=== PATIENT | female | born 1940 | race American Indian/Alaskan Native ===

== ENCOUNTER 2016-05-29 11:07 | Outpatient (CLI) | payer MEDICARE ==
--- NOTE | 2016-05-29 12:26 | Mammography Report ---
BILATERAL MAMMOGRAM: FINDINGS: The breast tissue is heterogeneously dense, which could obscure detection of small masses (approximately 50%-75% glandular). No mass, distortion, suspicious calcification, or skin change is seen. No significant change identified when compared to her prior study in March 2015. There is a left pacemaker obscuring the axilla. CAD was utilized. IMPRESSION: Negative mammogram. There is no mammographic evidence of malignancy. RECOMMENDATION: Follow-up per ACS guidelines. BI-RADS CATEGORY: 1 = Negative ACR BI-RADS MAMMOGRAPHIC CODES: 0 = Needs additional imaging evaluation; 1 = Negative; 2 = Benign; 3 = Probably benign; 4 = Suspicious; 5 = Malignant; 6 = Known biopsy-proven malignancy COMMENT: 1. Dense breast tissue, i.e., adenosis, fibrocystic changes, etc., may obscure an underlying neoplasm. 2. Approximately 10% of cancers are not detected with mammography. 3. A negative mammography report should not delay biopsy if a clinically suspicious mass is present. COMMENT: Patient follow-up letters are generated in [place].
== END 2016-05-29 11:08 | disposition home or self-care (01) ==
LOC: MAMMO 11:07
PROVIDERS: ATTEND Internal Medicine
DX: Z12.31 Encounter for screening mammogram for malignant neoplasm of breast (principal)
CPT/HCPCS: 77067; G0202

== ENCOUNTER 2018-09-15 14:07 | Outpatient (CLI) | payer MEDICARE ==
--- NOTE | 2018-09-15 15:43 | Mammography Report ---
DIGITAL SCREENING MAMMOGRAM WITH CAD INDICATION: Routine screening mammography. TECHNIQUE: Digital bilateral 2D mammography was obtained in the craniocaudal and mediolateral obliq ue projections. This examination was interpreted with the benefit of Computer-Aided Detection analysi s. COMPARISON: 05/29/2016 FINDINGS: Breast Density: The breasts are heterogeneously dense, which may obscure small masses. There is no evidence of dominant mass, suspicious calcifications or architectural distortion in eith er breast. A pacemaker obscures a large portion of the upper left breast on the MLO view. IMPRESSION: BI-RADS Category 2: Benign. No mammographic evidence of malignancy. Recommend routine screening ma mmography in one year. A "normal" or negative report should not discourage follow up or biopsy of a clinically significant f inding. A written summary of these findings will be mailed to the patient. The patient will be entered into a mammography reporting system which will generate a reminder letter for the patient's next appointmen t at the appropriate interval. The [employer] recommends yearly mammograms starting at age 40 and continuing as l samantha as a woman is in good health. Breast MRI is recommended for women with an approximate 20-25% or greater lifetime risk of breast cancer, including women with a strong family history of breast or ova bib cancer or who have been treated for Hodgkin's disease. Signer Name: Jai Solano MD Signed: 09/15/2018 3:39 PM Workstation Name: [id number]
--- NOTE | 2018-09-15 15:47 | XRay Report ---
CERVICAL SPINE, 3 VIEWS INDICATION: ARTHRITIS INVOLVING MULTIPLE SITES. COMPARISON: None. IMPRESSION: Mild osteopenia. Normal alignment. Flowing anterior bridging osteophytes are noted thro ughout the cervical spine. Disc space height appears preserved. There is no evidence for suspicious b juana lesion. No acute osseous or soft tissue abnormality. BILATERAL KNEES, 3 VIEWS: INDICATION: Arthritis involving multiple sites. COMPARISON: None. 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 No evidence for fracture, loosening or malalignment. Small right knee effusion is identified. Osteopenia is noted. Signer Name: Shaheen Bolaños Jr, MD Signed: 09/15/2018 3:42 PM Workstation Name: [id number]
== END 2018-09-15 14:08 | disposition home or self-care (01) ==
LOC: MAMMO 14:07
PROVIDERS: ATTEND Internal Medicine
DX: Z12.31 Encounter for screening mammogram for malignant neoplasm of breast (principal); M25.461 Effusion, right knee; M85.861 Other specified disorders of bone density and structure, right lower leg; M85.88 Other specified disorders of bone density and structure, other site
CPT/HCPCS: 72040; 77067

== ENCOUNTER 2019-08-18 11:51 | Outpatient (CLI) | payer MEDICARE | END 2019-08-18 11:52 | disposition home or self-care (01) | LOC: XRAY 11:51 | PROVIDERS: ATTEND Internal Medicine | DX: J15.9 Unspecified bacterial pneumonia (principal) | CPT/HCPCS: 71046 ==

== ENCOUNTER 2019-09-17 10:31 | Outpatient (CLI) | payer MEDICARE ==
--- NOTE | 2019-09-17 15:22 | Mammography Report ---
DIGITAL SCREENING MAMMOGRAM WITH CAD, 09/17/2019 INDICATION: Routine screening mammography. TECHNIQUE: Digital bilateral 2D mammography was obtained in the craniocaudal and mediolateral obliq ue projections. This examination was interpreted with the benefit of Computer-Aided Detection analysi s. COMPARISON: 09/15/2018. FINDINGS: Breast Density: The breasts are heterogeneously dense, which may obscure small masses. There is no evidence of dominant mass, suspicious calcifications or architectural distortion in eithe r breast. IMPRESSION: Follow up recommendation: Routine yearly BI-RADS Category 1: Negative. A "normal" or negative report should not discourage follow up or biopsy of a clinically significant f inding. A written summary of these findings will be mailed to the patient. The patient will be entered into a mammography reporting system which will generate a reminder letter for the patient's next appointmen t at the appropriate interval. The [employer] recommends yearly mammograms starting at age 40 and continuing as l samantha as a woman is in good health. Breast MRI is recommended for women with an approximate 20-25% or greater lifetime risk of breast cancer, including women with a strong family history of breast or ova bib cancer or who have been treated for Hodgkin's disease. Signer Name: Patrick Chaves MD Signed: 09/17/2019 3:18 PM Workstation Name: [id number]
== END 2019-09-17 10:32 | disposition home or self-care (01) ==
LOC: MAMMO 10:31
PROVIDERS: ATTEND Internal Medicine
DX: Z12.31 Encounter for screening mammogram for malignant neoplasm of breast (principal)
CPT/HCPCS: 77067